=== PATIENT | male | born 1990 ===

== ENCOUNTER 2017-01-06 18:47 | Emergency (ER) | payer OTHER ==
[2017-01-06] MEDS ORDERED: Sodium Chloride 0.9% 1,000 ML IV ONE (19:42)
[2017-01-06] MEDS ORDERED: Aluminum Hydroxide/Magnesium Hydroxide Susp (30 mL) PO STA (19:42)
[2017-01-06] MEDS ORDERED: Aluminum Hydroxide/Magnesium Hydroxide Susp (30 mL) ONE (20:07)
[2017-01-06] MEDS ORDERED: Sodium Chloride 0.9% 1,000 ML ONE (20:07)
[2017-01-06 20:27] LABS: BASO # 0.1 K/uL (0.0-0.2); BASO % 0.5 % (0.0-2.0); EOS % 0.4 % (0.0-4.0); LYMPH # 1.3 K/uL (1.0-4.3); LYMPH % 10.7 % (20.0-40.0); MEAN CELL VOLUME 84.8 fL (80.0-94.0); MEAN CORPUSCULAR HEMOGLOBIN 28.7 pg (27.0-31.0); MEAN CORPUSCULAR HGB CONC 33.8 g/dL (33.0-37.0); MEAN PLATELET VOLUME 9.6 fL (7.2-11.7); MONO # 0.8 K/uL (0.0-0.8); MONO % 6.5 % (0.0-10.0); NRBC % 0.1 % (0.0-2.0); RED CELL DISTRIBUTION WIDTH 13.9 % (11.5-14.5); WHITE BLOOD COUNT 11.7 K/uL (4.8-10.8)
[2017-01-06 20:30] LABS: RBC URINE < 1 /hpf (0-3); URINE BILIRUBIN NEGATIVE (NEGATIVE); URINE BLOOD NEGATIVE (NEGATIVE); URINE COLOR Yellow (YELLOW); URINE GLUCOSE (UA) NORMAL (Normal); URINE KETONE NEGATIVE (NEGATIVE); URINE LEUKOCYTE ESTERASE NEG Leu/uL (Negative); URINE PROTEIN NEGATIVE (NEGATIVE); WBC URINE < 1 /hpf (0-5)
[2017-01-06 20:49] LABS: CHLORIDE 102 mmol/L (98-107)
[2017-01-06 20:50] LABS: POTASSIUM 3.9 mmol/L (3.6-5.2); SODIUM 140 mmol/L (132-148)
[2017-01-06 20:52] LABS: ALB/GLOB RATIO 1.2 (1.0-2.1); ALKALINE PHOSPHATASE 96 U/L (38-126); ALT/SGPT 249 U/L (21-72); AST/SGOT 268 U/L (17-59); BILIRUBIN,TOTAL 1.2 mg/dL (0.2-1.3); BLOOD UREA NITROGEN 15 mg/dL (9-20); CALCIUM 9.4 mg/dl (8.6-10.4); CARBON DIOXIDE 23 mmol/L (22-30); GFR AFRICAN-AMERICAN > 60; GLUCOSE,RANDOM 105 mg/dL (75-110); TOTAL PROTEIN 8.2 g/dL (6.3-8.3)
--- NOTE | 2017-01-06 21:24 | C.PDOC ---
History Of Present Illness 26 y/o male presents to ED with complaints of epigastric abdominal pain for 2 weeks worse with food. Patient also reports vomiting last week that resolved. Patient has history of similar symptoms two years ago when he was diagnosed with H Pylori. Patient states he took Omeprazole with no relief and denies fever, chills, diarrhea, back pain, urinary symptoms or any other complaints at this time. Time Seen by Provider: 01/06/17 19:30 Chief Complaint (Nursing): Abdominal Pain History Per: Patient History/Exam Limitations: no limitations Onset/Duration Of Symptoms: Days Current Symptoms Are (Timing): Still Present Past Medical History Reviewed: Historical Data, Nursing Documentation, Vital Signs Vital Signs: Last Vital Signs Temp 98.0 F 01/06/17 21:53 Pulse 63 01/06/17 21:53 Resp 18 01/06/17 21:53 BP 124/79 01/06/17 21:53 Pulse Ox 99 01/06/17 22:19 - Medical History PMH: Gastritis Family History: States: No Known Family Hx - Social History Hx Tobacco Use: No Hx Alcohol Use: No Hx Substance Use: No - Immunization History Hx Tetanus Toxoid Vaccination: Yes Hx Influenza Vaccination: No Hx Pneumococcal Vaccination: No Review Of Systems Except As Marked, All Systems Reviewed And Found Negative. Constitutional: Negative for: Fever, Chills Cardiovascular: Negative for: Chest Pain Respiratory: Negative for: Shortness of Breath Gastrointestinal: Positive for: Vomiting, Abdominal Pain. Negative for: Nausea , Diarrhea Genitourinary: Negative for: Dysuria, Frequency Musculoskeletal: Negative for: Back Pain Skin: Negative for: Rash Physical Exam - Physical Exam Appears: Non-toxic, No Acute Distress Skin: Normal Color, Warm, Dry, No Rash Head: Atraumatic, Normacephalic Eye(s): bilateral: Normal Inspection, EOMI Nose: Normal Oral Mucosa: Moist Neck: Normal ROM, Supple Chest: Symmetrical Cardiovascular: Rhythm Regular, No Murmur Respiratory: Normal Breath Sounds, No Rales, No Rhonchi, No Wheezing Gastrointestinal/Abdominal: Soft, Tenderness (Epigastric), No Guarding, No Rebound Back: No CVA Tenderness, No Vertebral Tenderness Neurological/Psych: Oriented x3, Normal Speech, Normal Cognition ED Course And Treatment - Laboratory Results Result Diagrams: 01/06/17 20:10 01/06/17 20:10 O2 Sat by Pulse Oximetry: 99 (RA) Pulse Ox Interpretation: Normal Progress Note: On re-evaluation, pt notes pain improved. Refuses additional medicaiton. Abdomen soft, toerating PO. Afebrile. Discsussed with pt limitations of ER exam and instructed to follow up with GI for endoscope. Case discussed, labs and US, reviewed by Dr Mock, agreed upon plan and treatment. Disposition - Disposition Referrals: [facility] at [facility] [Outside] Johnathan Gray MD [Staff Provider] - Disposition: HOME/ ROUTINE Disposition Time: 22:16 Condition: STABLE Additional Instructions: Vaya a zepeda mdico o la clnica en 1-3 gomes sin falta, para mas evaluacin. [place] los medicamentos jennifer indicado. Volver a la esther de emergencia en cualquier momento si los sntomas persisten o empeoran. Prescriptions: Calcium Carbonate/Simethicone [Maalox Advanced 1000 mg-60 mg] 1 ctb PO TID #20 ctb Pantoprazole Sodium [Protonix] 20 mg PO DAILY #20 ect Instructions: Gastroesophageal Reflux Disease (ED) Forms: [employer] (Macanese) Print Language: [place] - Clinical Impression Clinical Impression: Abdominal pain - PA / STATE ATTORNEY / Resident Statement MD/DO has reviewed & agrees with the documentation as recorded. - Scribe Statement The provider has reviewed the documentation as recorded by the Scribtai Cherry All medical record entries made by the Scribe were at my direction and personally dictated by me. I have reviewed the chart and agree that the record accurately reflects my personal performance of the history, physical exam, medical decision making, and the department course for this patient. I have also personally directed, reviewed, and agree with the discharge instructions and disposition.
[2017-01-06 21:54] VITALS: BP 124/79; PULSE 63; RESP 18; TEMP 98
--- NOTE | 2017-01-06 22:05 | US ---
EXAM: US Abdomen Complete EXAM DATE/TIME: 01/06/2017 7:43 PM CLINICAL HISTORY: 26 years old, male; Pain; Abdominal pain; Generalized; Additional info: Abd pain TECHNIQUE: Real-time ultrasound of the abdomen (complete) with image documentation. COMPARISON: No relevant prior studies available. FINDINGS: Gallbladder: Within normal limits in appearance, without evidence of gallstones, significant gallbladder wall thickening, or pericholecystic fluid. Reportedly negative sonographic Russell's sign. Common bile duct: Does not appear abnormally dilated, measuring less than 6 mm in diameter. Liver: Mildly enlarged, measuring 18.8 cm in length. Demonstrates diffusely increased parenchymal echogenicity, most compatible with fatty infiltration. Otherwise within normal limits in appearance. Normal flow seen in the main portal vein on color and Doppler imaging. Pancreas: Mostly obscured by gas. Right kidney: Somewhat poorly seen due to gas. Within normal limits in appearance. Measures 12 cm in length. No evidence of hydronephrosis. Left kidney: Within normal limits in appearance. Measures 11.9 cm in length. No evidence of hydronephrosis. Spleen: Within normal limits in appearance. Measures 11.2 cm in length. Aorta: Imaged portions appear unremarkable. IVC: Imaged portions appear unremarkable. IMPRESSION: No evidence of acute cholecystitis or other significant acute abnormality. Fatty infiltration of the liver and mild hepatomegaly. See above for remaining findings.
[2017-01-06 22:19] VITALS: O2SAT 99
--- NOTE | 2017-01-08 11:43 | CARD ---
APPROVED REPORT EKG Measurement Heart [id number] <Conclusion> Normal sinus rhythm
== END 2017-01-06 22:46 | disposition home or self-care (01) ==
LOC: C.ER 18:47
DX: R10.13 Epigastric pain (principal)
CPT/HCPCS: 76700; 80053; 81001; 83690; 85025; 96361; 96374; 96375; 99285; C9113; J1885; J7040

== ENCOUNTER 2018-06-01 12:23 | Emergency (ER) | payer SELFPAY ==
[2018-06-01 12:33] VITALS: BP 141/84; PULSE 56; RESP 16; TEMP 98.2; O2SAT 98
--- NOTE | 2018-06-01 12:36 | C.PDOC ---
History Of Present Illness 27 year old male presents to the ED for evaluation of right-sided ear pain which began 3 days ago. Patient states he initially had left-sided ear pain two week ago which spontaneously resolved. Patient began having discomfort in his right ear, and tried using Q-tips to relieve the pain. Patient denies fever, chills, ear discharge, sinus or upper respiratory infections. Time Seen by Provider: 06/01/18 12:31 Chief Complaint (Nursing): ENT Problem History Per: Patient History/Exam Limitations: None Onset/Duration Of Symptoms: Days (3) Current Symptoms Are (Timing): Still Present Past Medical History Reviewed: Historical Data, Nursing Documentation, Vital Signs Vital Signs: Last Vital Signs Temp 98.2 F 06/01/18 12:27 Pulse 56 L 06/01/18 12:27 Resp 16 06/01/18 12:27 BP 141/84 06/01/18 12:27 Pulse Ox 98 06/01/18 12:27 - Medical History PMH: Gastritis Surgical History: No Surg Hx Family History: States: Unknown Family Hx - Social History Hx Tobacco Use: No Hx Alcohol Use: No Hx Substance Use: No - Immunization History Hx Tetanus Toxoid Vaccination: Yes Hx Influenza Vaccination: No Hx Pneumococcal Vaccination: No Review Of Systems Constitutional: Negative for: Fever, Chills ENT: Positive for: Ear Pain (right). Negative for: Ear Discharge Physical Exam - Physical Exam Appears: Non-toxic, No Acute Distress Skin: Normal Color, Warm, Dry Head: Atraumatic, Normacephalic Eye(s): bilateral: Normal Inspection Ear(s): Left: Normal, Right: Other (perforated TM ) Oral Mucosa: Moist Neck: Supple Chest: Symmetrical, No Deformity, No Tenderness Cardiovascular: Rhythm Regular, No Murmur Respiratory: Normal Breath Sounds, No Rales, No Rhonchi, No Wheezing Extremity: Normal ROM Neurological/Psych: Oriented x3, Normal Speech, Normal Cognition ED Course And Treatment O2 Sat by Pulse Oximetry: 98 (on RA) Pulse Ox Interpretation: Normal Disposition Counseled Patient/Family Regarding: Diagnosis, Need For Followup, Rx Given - Disposition Referrals: [facility] [Outside] [facility] at [facility] [Outside] Disposition: HOME/ ROUTINE Disposition Time: 12:34 Condition: GOOD Prescriptions: Ibuprofen [Motrin] 600 mg PO Q6 #30 tab Instructions: Ruptured Eardrum (DC) Print Language: GABONESE - Clinical Impression Clinical Impression: Otalgia, Perforated tympanic membrane - Scribe Statement The provider has reviewed the documentation as recorded by the Scribe (Josselin Cason) Provider Attestation: All medical record entries made by the Scribe were at my direction and personally dictated by me. I have reviewed the chart and agree that the record accurately reflects my personal performance of the history, physical exam, medical decision making, and the department course for this patient. I have also personally directed, reviewed, and agree with the discharge instructions and disposition.
== END 2018-06-01 12:45 | disposition home or self-care (01) ==
LOC: EDBD 12:23 → C.ER 12:23
DX: H72.91 Unspecified perforation of tympanic membrane, right ear (principal); H92.01 Otalgia, right ear